=== PATIENT | male | born 1980 | race Caucasian/White ===

== ENCOUNTER → 2024-01-18 07:59 | Outpatient (REF) | payer OTHER, SELFPAY | LOC: HWRCS 07:59 | PROVIDERS: ATTENDING PHYSICIAN Nuclear Medicine Nuclear Cardiology; FAMILY PHYSICIAN Family Medicine | DX: R06.02 Shortness of breath (principal); I10 Essential (primary) hypertension; Z82.49 Family history of ischemic heart disease and other diseases of the circulatory system | CPT/HCPCS: 93306 ==

== ENCOUNTER → 2024-01-24 15:06 | Outpatient (REF) | payer OTHER, SELFPAY | LOC: RCS 15:06 | PROVIDERS: ATTENDING PHYSICIAN Nuclear Medicine Nuclear Cardiology; FAMILY PHYSICIAN Family Medicine | DX: R06.02 Shortness of breath (principal); I10 Essential (primary) hypertension; Z82.49 Family history of ischemic heart disease and other diseases of the circulatory system; E66.3 Overweight; E78.2 Mixed hyperlipidemia | CPT/HCPCS: 93017 ==